=== PATIENT | male | born 1955 | race Caucasian/White ===

== ENCOUNTER 2018-06-05 11:14 | Inpatient (IN) ==
--- NOTE | 2018-06-05 12:49 | ED ---
HPI General Chief complaint: Respiratory Symptoms Stated complaint: Medical/Dr Sent Time Seen by Provider: 06/05/18 12:24 Source: patient, RN notes reviewed and old records reviewed Mode of arrival: wheelchair Limitations: no limitations History of Present Illness HPI narrative: 63-year-old male presents to the emergency department for admission. Patient had his first appointment at the resident clinic this morning. He is referred to the emergency department for admission for probable pneumonia, acute liver failure. The patient was recently in the hospital, left on May 26. According the chart, he did leave AMA as they were working on placement for him. The patient states that he has been chronically weak since he left, no different. He states that his jaundice is worse some days than others, it is worse today. Patient denies any headache. Denies any fevers. He reports chest pain shortness breath only with coughing which started 3 days ago. He denies any abdominal pain. No nausea, vomiting, diarrhea. Patient is jaundiced upon arrival. He denies drinking alcohol, using tobacco or using drugs. He was recently diagnosed with hepatitis A, CVA while in the hospital recently. He does have history of diabetes and hypertension. Moderate severity. Onset (ago): day(s) Severity: moderate Relieving factors: none Exacerbating factors: none Associated symptoms: Reports denies other symptoms, cough and weakness; Denies confusion, diaphoresis, fever/chills, headaches, loss of appetite, malaise, nausea/vomiting, rash, seizure, shortness of breath and syncope Related Data Home Medications Medication Instructions Recorded Confirmed insulin glargine [Lantus U-100 40 unit SUBCUT DAILY 06/05/18 06/05/18 Insulin] insulin lispro [Humalog U-100 12 unit SUBCUT AC BREAKFAST 06/05/18 06/05/18 Insulin] insulin lispro [Humalog U-100 12 unit SUBCUT AC LUNCH 06/05/18 06/05/18 Insulin] insulin lispro [Humalog U-100 16 unit SUBCUT AC DINNER 06/05/18 06/05/18 Insulin] pregabalin [Lyrica] 30 mg PO TID 06/05/18 06/05/18 Previous Rx's Medication Instructions Recorded insulin aspart U-100 1 sliding scale dose SQ UD #15 ml 05/19/18 aspirin 81 mg PO DAILY #30 tab 05/25/18 albuterol sulfate [ProAir HFA] 2 puff INHALATION Q4-6H PRN #1 06/06/18 inhaler hydrochlorothiazide 12.5 mg PO DAILY #60 tab 06/06/18 lisinopril 40 mg PO DAILY #60 tab 06/06/18 Allergies Allergy/AdvReac Type Severity Reaction Status Date / Time No Known Allergies Allergy Verified 06/05/18 11:27 Review of Systems ROS: all other systems reviewed are negative [facility] Medical History Medical History Diabetes (Acute) HTN (hypertension) (Acute) Surgical History Surgical History No history of previous surgery (Acute) Social History Social History Substance History: No History of Abuse Second Hand Smoke Exposure: No Smoking Status: Never smoker How Often Do You Have a Drink Containing Alcohol: Never Recent Travel in [facility] within the Last 8 Weeks: No Recent Out of Country Travel within the Last 8 Weeks: No Exam Narrative Exam Narrative: GENERAL: Well-nourished, well-developed male patient, afebrile SKIN: Focused skin assessment warm/dry. Patient is jaundiced HEAD: Normocephalic. Atraumatic EYES: No injection or drainage. NECK: Supple, trachea midline. No JVD or lymphadenopathy. CARDIOVASCULAR: Regular rate and rhythm without murmurs, gallops, or rubs. RESPIRATORY: Breath sounds equal bilaterally. No accessory muscle use. Dry cough noted. GASTROINTESTINAL: Abdomen soft, non-tender, nondistended. MUSCULOSKELETAL: No cyanosis. Bilateral 2+ lower extremity edema BACK: Nontender without obvious deformity. No CVA tenderness. Course Initial Documented Vital Signs Temperature 98.8 F 06/05/18 11:22 Pulse Rate 86 06/05/18 11:22 Respiratory Rate 16 06/05/18 11:22 Blood Pressure 216/100 H 06/05/18 11:22 Pulse Oximetry 97 06/05/18 11:22 Last Documented Vital Signs Temperature 98.5 F 06/06/18 12:00 Pulse Rate 81 06/06/18 12:00 Respiratory Rate 19 06/06/18 12:00 Blood Pressure 170/70 H 06/06/18 12:00 Pulse Oximetry 98 06/06/18 12:00 Medical Decision Making LEONARDO Attestation LEONARDO supervised visit: Yes Attestation: Patient was not seen by me or presented by advance practitioner, I was available for consult MDM Narrative Medical decision making narrative: 63-year-old male presents to the emergency department sent from the resident clinic for admission. EKG, CBC, CMP, lipase, lactic acid, PTT, PT/INR, blood cultures x2, UA are ordered and pending. Residents are paged. Residents accepted admission. Medical Screen Exam Complete: Yes Emergency Medical Condition: Yes Differential Diagnosis Differential Diagnosis: Acute liver failure versus hepatitis versus pneumonia versus sepsis Medical Records Medical records reviewed: Yes I reviewed the patient's medical records. Lab Data Result diagrams: 06/06/18 04:15 06/06/18 04:15 Lab Results 06/05/18 06/05/18 06/05/18 Range/Units 13:25 13:25 13:25 WBC 6.7 (4.0-11.0) th/mm3 RBC 3.30 L (4.50-5.90) mil/mm3 Hgb 9.9 L (13.0-17.0) gm/dL Hct 29.3 L (39.0-51.0) % MCV 88.8 (80.0-100.0) fL MCH 30.0 (27.0-34.0) pg MCHC 33.8 (32.0-36.0) % RDW 18.6 H (11.6-17.2) % Plt Count 373 D (150-450) th/mm3 MPV 8.0 (7.0-11.0) fL Prelim Diff (Auto) Manual diff required WBC Differential Manual diff final Seg Neuts % (Manual) 70 (16-70) % Band Neuts % (Manual) 6 (0-6) % Lymphocytes % (Manual) 11 (9-44) % Monocytes % (Manual) 8 (0-8) % Eosinophils % (Manual) 5 H (0-4) % Abs Neuts (Manual) 5.1 (1.8-7.7) th/mm3 Differential Comment . Platelet Estimate Normal (Normal) Platelet Morphology Normal (Normal) PT 13.5 H (9.8-11.6) sec INR 1.3 Ratio APTT 28.0 (23.4-31.7) sec Sodium 139 (136-145) meq/L Potassium 4.1 (3.5-5.1) meq/L Chloride 111 H (98-107) meq/L Carbon Dioxide 22.1 (21.0-32.0) meq/L Anion Gap 6 (5-15) meq/L BUN 19 H (7-18) mg/dL Creatinine 1.53 H (0.60-1.30) mg/dL Estimated GFR 46 L (>89) mL/min POC Glucose (68-110) mg/dl Random Glucose 90 (74-106) mg/dL Lactic Acid (0.4-2.0) mmol/L Calcium 7.3 L* (8.5-10.1) mg/dL Calcium Adj for Albumin 9.3 (8.5-10.1) mg/dL Magnesium 1.9 (1.5-2.5) mg/dL Total Bilirubin 10.9 H (0.2-1.0) mg/dL AST 74 H (15-37) U/L ALT 95 H (12-78) U/L Alkaline Phosphatase 280 H (45-117) U/L Total Protein 7.9 (6.4-8.2) g/dL Albumin 1.5 L (3.4-5.0) g/dL Lipase 310 (73-393) U/L 06/05/18 06/05/18 06/05/18 Range/Units 13:25 16:31 20:21 WBC (4.0-11.0) th/mm3 RBC (4.50-5.90) mil/mm3 Hgb (13.0-17.0) gm/dL Hct (39.0-51.0) % MCV (80.0-100.0) fL MCH (27.0-34.0) pg MCHC (32.0-36.0) % RDW (11.6-17.2) % Plt Count (150-450) th/mm3 MPV (7.0-11.0) fL Prelim Diff (Auto) WBC Differential Seg Neuts % (Manual) (16-70) % Band Neuts % (Manual) (0-6) % Lymphocytes % (Manual) (9-44) % Monocytes % (Manual) (0-8) % Eosinophils % (Manual) (0-4) % Abs Neuts (Manual) (1.8-7.7) th/mm3 Differential Comment Platelet Estimate (Normal) Platelet Morphology (Normal) PT (9.8-11.6) sec INR Ratio APTT (23.4-31.7) sec Sodium (136-145) meq/L Potassium (3.5-5.1) meq/L Chloride (98-107) meq/L Carbon Dioxide (21.0-32.0) meq/L Anion Gap (5-15) meq/L BUN (7-18) mg/dL Creatinine (0.60-1.30) mg/dL Estimated GFR (>89) mL/min POC Glucose 62 L 134 H (68-110) mg/dl Random Glucose (74-106) mg/dL Lactic Acid 1.5 (0.4-2.0) mmol/L Calcium (8.5-10.1) mg/dL Calcium Adj for Albumin (8.5-10.1) mg/dL Magnesium (1.5-2.5) mg/dL Total Bilirubin (0.2-1.0) mg/dL AST (15-37) U/L ALT (12-78) U/L Alkaline Phosphatase (45-117) U/L Total Protein (6.4-8.2) g/dL Albumin (3.4-5.0) g/dL Lipase (73-393) U/L 06/06/18 06/06/18 06/06/18 Range/Units 04:15 04:15 04:15 WBC 6.9 (4.0-11.0) th/mm3 RBC 2.94 L (4.50-5.90) mil/mm3 Hgb 8.7 L (13.0-17.0) gm/dL Hct 26.1 L (39.0-51.0) % MCV 88.9 (80.0-100.0) fL MCH 29.8 (27.0-34.0) pg MCHC 33.5 (32.0-36.0) % RDW 18.5 H (11.6-17.2) % Plt Count 310 (150-450) th/mm3 MPV 8.8 (7.0-11.0) fL Prelim Diff (Auto) Manual diff required WBC Differential Manual diff final Seg Neuts % (Manual) 73 H (16-70) % Band Neuts % (Manual) 5 (0-6) % Lymphocytes % (Manual) 7 L (9-44) % Monocytes % (Manual) 12 H (0-8) % Eosinophils % (Manual) 3 (0-4) % Abs Neuts (Manual) 5.4 (1.8-7.7) th/mm3 Differential Comment . Platelet Estimate Normal (Normal) Platelet Morphology Normal (Normal) PT 12.8 H (9.8-11.6) sec INR 1.3 Ratio APTT (23.4-31.7) sec Sodium 140 (136-145) meq/L Potassium 4.6 (3.5-5.1) meq/L Chloride 112 H (98-107) meq/L Carbon Dioxide 22.4 (21.0-32.0) meq/L Anion Gap 6 (5-15) meq/L BUN 19 H (7-18) mg/dL Creatinine 1.42 H (0.60-1.30) mg/dL Estimated GFR 50 L (>89) mL/min POC Glucose (68-110) mg/dl Random Glucose 82 (74-106) mg/dL Lactic Acid (0.4-2.0) mmol/L Calcium 7.3 L* (8.5-10.1) mg/dL Calcium Adj for Albumin 9.5 (8.5-10.1) mg/dL Magnesium (1.5-2.5) mg/dL Total Bilirubin 8.4 H (0.2-1.0) mg/dL AST 63 H (15-37) U/L ALT 76 (12-78) U/L Alkaline Phosphatase 234 H (45-117) U/L Total Protein 6.8 D (6.4-8.2) g/dL Albumin 1.2 L (3.4-5.0) g/dL Lipase (73-393) U/L 06/06/18 06/06/18 Range/Units 07:36 11:25 WBC (4.0-11.0) th/mm3 RBC (4.50-5.90) mil/mm3 Hgb (13.0-17.0) gm/dL Hct (39.0-51.0) % MCV (80.0-100.0) fL MCH (27.0-34.0) pg MCHC (32.0-36.0) % RDW (11.6-17.2) % Plt Count (150-450) th/mm3 MPV (7.0-11.0) fL Prelim Diff (Auto) WBC Differential Seg Neuts % (Manual) (16-70) % Band Neuts % (Manual) (0-6) % Lymphocytes % (Manual) (9-44) % Monocytes % (Manual) (0-8) % Eosinophils % (Manual) (0-4) % Abs Neuts (Manual) (1.8-7.7) th/mm3 Differential Comment Platelet Estimate (Normal) Platelet Morphology (Normal) PT (9.8-11.6) sec INR Ratio APTT (23.4-31.7) sec Sodium (136-145) meq/L Potassium (3.5-5.1) meq/L Chloride (98-107) meq/L Carbon Dioxide (21.0-32.0) meq/L Anion Gap (5-15) meq/L BUN (7-18) mg/dL Creatinine (0.60-1.30) mg/dL Estimated GFR (>89) mL/min POC Glucose 92 140 H (68-110) mg/dl Random Glucose (74-106) mg/dL Lactic Acid (0.4-2.0) mmol/L Calcium (8.5-10.1) mg/dL Calcium Adj for Albumin (8.5-10.1) mg/dL Magnesium (1.5-2.5) mg/dL Total Bilirubin (0.2-1.0) mg/dL AST (15-37) U/L ALT (12-78) U/L Alkaline Phosphatase (45-117) U/L Total Protein (6.4-8.2) g/dL Albumin (3.4-5.0) g/dL Lipase (73-393) U/L Imaging Data Radiologist's impression: Chest X-Ray 06/05/18 12:39 CONCLUSION: The lungs are clear. Discharge Plan Discharge Disposition Patient Disposition: ED Admit(ED Internal Use Only) Discharge Condition Condition: Stable Discharge Order Discharge Orders: Discharge Order (Routine); Ordered 06/06/18 Ordered By: Quinton Stephens ED Use Only Admit Order (Routine); Ordered 06/05/18 Ordered By: Delmy Gold Discharge Details Anticipated Discharge Date: 06/06/18 Diagnosis: Acute liver failure Physicians Team ED Provider: Jason Dawson ED Midlevel Provider: Delmy Gold Primary Care Provider: Josee Alejo Attending Provider: Peggy Verdin Other Providers: [facility], Status ED Status: Left Department Discharge Information Discharge Date/Time: 06/05/18 15:30
--- NOTE | 2018-06-05 13:15 | XR ---
EXAM DATE: 06/05/2018 1:11 PM EST AGE/SEX: 63 years / Male INDICATIONS: Fever. CLINICAL DATA: This is the patient's initial encounter. Patient reports that signs and symptoms have been present for 1 day and indicates a pain score of 6/10. MEDICAL/SURGICAL HISTORY: . Diabetes. Hypertension. None. COMPARISON: [facility], CHEST 1V SINGLE AP, 05/19/2018. . FINDINGS: A single AP view of the chest demonstrates the lungs to be symmetrically aerated without evidence of mass, infiltrate or effusion. The cardiomediastinal contours are unremarkable. Osseous structures a re intact. CONCLUSION: The lungs are clear. Electronically signed by: Brice Ventura MD Board Certified Radiologist 06/05/2018 1:14 PM EST
[2018-06-05] MEDS ORDERED: Acetaminophen 325 MG Tablet PO PRN (13:36)
[2018-06-05 14:01] LABS: Hematocrit 29.3 % (39.0-51.0); Hemoglobin 9.9 gm/dL (13.0-17.0); Mean Corpuscular HGB Conc 33.8 % (32.0-36.0); Mean Corpuscular Volume 88.8 fL (80.0-100.0); Platelet Count 373 th/mm3 (150-450); Red Cell Distribution Width 18.6 % (11.6-17.2); White Blood Count 6.7 th/mm3 (4.0-11.0)
[2018-06-05 14:10] LABS: INR 1.3 Ratio; Prothrombin Time 13.5 sec (9.8-11.6)
[2018-06-05] MEDS ORDERED: Dextrose 50% in Water 50 ML Vial IV.PUSH PRN (14:23)
[2018-06-05 14:25] LABS: Albumin 1.5 g/dL (3.4-5.0); Calcium 7.3 mg/dL (8.5-10.1); Carbon Dioxide 22.1 meq/L (21.0-32.0); Magnesium 1.9 mg/dL (1.5-2.5); Potassium 4.1 meq/L (3.5-5.1)
[2018-06-05 14:26] LABS: Total Protein 7.9 g/dL (6.4-8.2)
[2018-06-05 14:29] LABS: Eosinophils 5 % (0-4); Lymphocytes 11 % (9-44); Monocytes 8 % (0-8); Platelet Estimate Normal (Normal); Platelet Morphology Normal (Normal)
[2018-06-05] MEDS ORDERED: hydrALAZINE HCl Inj 20 MG/ML Vial IV.PUSH PRN (14:33)
[2018-06-05] MEDS ORDERED: Labetalol HCl Inj 100 MG/20 ML Vial IV.PUSH PRN (14:33)
[2018-06-05] MEDS: Lisinopril 20 MG Tablet PO SCH (14:42)
--- NOTE | 2018-06-05 14:55 | P.HPFP ---
History of Present Illness Primary Care Physician: Josee Gibbons MD, R2 <LambertSaulPeggy - 06/07/18 18:05> UNKNOWN <Stanislavjackie KatQuinton - 06/05/18 14:55> History of Present Illness: The patient is a very pleasant 63-year-old male with history of insulin-dependent diabetes mellitus, recent hospitalization here last month initially with DKA, h/o CVA, HTN, recent hepatitis A, and noted arrhythmia last month who was sent to the ED by his primary care physician after being seen in clinic today for respiratory symptoms and acute liver injury. The patient seen in the ED with his daughter who provides much of the history. They report subjective fevers and cough for about the past 3 days. Cough is sometimes productive of green phlegm. Patient has had mild shortness of breath primarily when coughing as well. Denies chest pain, confusion, BARRIOS, changes in vision, abdominal pain, N/V, diarrhea, urinary symptoms. His daughter states his diet has been good at home. He ambulates at home unassisted with the use of a cane. They are unsure how the patient got hepatitis A. A hepatitis panel was checked at his last hospitalization last month here which was negative for hepatitis B and C. They otherwise deny known PMH. Do report he was seeing a PCP in [place] up until January 2018 when they moved to the [facility]. PMH - Insulin-dependent diabetes mellitus, last A1c 15.2 on 05/21/2018 - History of DKA - CVA - Hypertension - Hepatitis A - Arrhythmia PSxH - Hernia repair - Penile implant FH - Father: daughter reports massive NE SH - Lives with his son and daughter - Never smoker - Etoh: Denies. Occasional intake in the past, no h/o etoh abuse - Illicit drugs: denies <Junito Kat,[place] - 06/05/18 15:15> - Diagnosis (1) Hypertension (2) Transaminitis (3) Hepatitis A (4) Cough (5) Diabetes mellitus (6) History of CVA (cerebrovascular accident) (7) Atrial arrhythmia (8) THAIS (acute kidney injury) (9) Nutrition, metabolism, and development symptoms <LambertPeggy - 06/07/18 18:05> (1) Hypertension (2) Transaminitis (3) Hepatitis A (4) Cough (5) Diabetes mellitus (6) History of CVA (cerebrovascular accident) (7) Atrial arrhythmia (8) THAIS (acute kidney injury) (9) Nutrition, metabolism, and development symptoms <[address] 06/05/18 15:15> Inpatient Certification: I certify that the inpatient services were ordered in accordance with Medicare regulations governing the order. This includes certification that hospital inpatient services are reasonable and necessary and in the case of services not specified as inpatient-only under 42 CFR 419.22(n), that they are appropriately provided as inpatient services in accordance to with the 2-midnight benchmark under 43 CFR 412.3(e) <Peggy Verdin [facility] 06/07/18 18:05> Review of Systems Constitutional: Reports fever(s), Reports malaise <[address] 15:15> Cardiovascular: Denies chest pain, Denies chest pain at rest, Denies rapid, pounding, or irregular heartbeat, Denies shortness of breath with activity < [address] 06/05/18 15:15> Respiratory: Reports change in phlegm color, Reports cough, Denies coughing up blood <[address] 06/05/18 15:15> Gastrointestinal: Reports incontinent of stools, Denies abdominal pain, Denies black, tarry stools, Denies change in bowel habits, Denies constipation, Denies nausea, Denies vomiting <[address] 06/05/18 15:15> Genitourinary: Denies difficulty urinating, Denies painful urination < [address] 06/05/18 15:15> Neurologic: Denies confusion, Denies dizziness, Denies headache(s) < [address] 06/05/18 15:15> [facility] - History History Provided By: Patient <[address] 06/05/18 14:55> - Medical History Medical History: Medical History (Last Updated 06/05/18 @ 12:49 by Dilcia Mann) Diabetic macular edema Hepatitis A Diabetes HTN (hypertension) <Peggy Verdin [facility] 06/07/18 18:05> Medical History (Last Updated 06/05/18 @ 12:49 by Dilcia Mann) Diabetic macular edema Hepatitis A Diabetes HTN (hypertension) <[address] 06/05/18 14:55> - Surgical History Surgical History: Surgical History (Last Updated 06/05/18 @ 12:49 by Dilcia Mann) History of hernia repair History of penile implant No history of previous surgery <Peggy Verdin - 06/07/18 18:05> Surgical History (Last Updated 06/05/18 @ 12:49 by Dilcia Mann) History of hernia repair History of penile implant No history of previous surgery <[facility] 06/05/18 14:55> - Family History Family History: Family History (Last Updated 05/13/18 @ 16:57 by Ny Jean) Other Cardiovascular disease <Peggy Verdin - 06/07/18 18:05> Family History (Last Updated 05/13/18 @ 16:57 by Ny Jean) Other Cardiovascular disease <[address]manuel[address] 06/05/18 14:55> - Tobacco History Second Hand Smoke Exposure: No <[address] 06/05/18 14:55> Smoking Status: Never smoker <[address] 06/05/18 14:55> - Alcohol History How Often Do You Have a Drink Containing Alcohol: Never <[address] 06/05/18 14:55> - Substance Use History Substance History: No History of Abuse <[address] 06/05/18 14:55> - Travel History Recent Travel in the [facility] Within the Last 8 Weeks: No <[address] 06/05/18 14:55> Recent Travel Out of the Country Within the Last 8 Weeks: No <[address] 06/05/18 14:55> - Immunization History Tetanus Immunization: Unsure <[address] 06/05/18 14:55> Medications and Allergies Allergies Allergy/AdvReac Type Severity Reaction Status Date / Time No Known Allergies Allergy Verified 06/05/18 11:27 <Peggy Verdin - 06/07/18 18:05> Home Medications Medication Instructions Recorded Confirmed Type insulin glargine [Lantus U-100 40 unit SUBCUT DAILY 06/05/18 06/05/18 History Insulin] insulin lispro [Humalog U-100 12 unit SUBCUT AC BREAKFAST 06/05/18 06/05/18 History Insulin] insulin lispro [Humalog U-100 12 unit SUBCUT AC LUNCH 06/05/18 06/05/18 History Insulin] insulin lispro [Humalog U-100 16 unit SUBCUT AC DINNER 06/05/18 06/05/18 History Insulin] pregabalin [Lyrica] 30 mg PO TID 06/05/18 06/05/18 History <Peggy Verdin M - 06/07/18 18:05> Active Medications: Active Medications Acetaminophen (Tylenol) 650 mg PO Q6H PRN PRN Reason: Temp > 100.4 Albuterol (Albuterol Neb (Prn)) 2.5 mg NEB Q2HR NEB PRN PRN Reason: SHORTNESS OF BREATH/WHEEZING Albuterol (Duoneb Neb (Prn)) 1 ampul NEB Q4HR NEB PRN PRN Reason: SHORTNESS OF BREATH/WHEEZING Dextrose (D50w Vial) 50 ml IV.PUSH UNSCH PRN PRN Reason: PER HYPOGLYCEMIA PROTOCOL Glucagon (Glucagon Inj) 1 mg OTHER PRN PRN PRN Reason: for Hypoglycemia Protocol Hydralazine HCl (Apresoline Inj) 10 mg IV.PUSH Q6H PRN PRN Reason: SEE LABEL COMMENTS Insulin Aspart (Novolog Insulin Correctional Sugar Inj) 0 unit SQ ACHS [facility]; Protocol Insulin Detemir (Levemir Inj) 5 unit SQ BID ANSHU Labetalol HCl (Trandate Inj) 10 mg IV.PUSH Q4H PRN PRN Reason: SEE LABEL COMMENTS Lisinopril (Prinivil) 20 mg PO DAILY [facility] Last Admin: 06/05/18 14:42 Dose: 20 mg Ondansetron HCl (Zofran Inj) 4 mg IV.PUSH Q6H PRN PRN Reason: NAUSEA OR VOMITING Pravastatin Sodium (Pravachol) 20 mg PO HS ANSHU Pregabalin (Lyrica) 25 mg PO TID ANSHU Sodium Chloride (Ns Flush) 2 ml IV.FLUSH BID ANSHU Sodium Chloride (Ns Flush) 2 ml IV.FLUSH PRN PRN PRN Reason: FLUSH AFTER USING IV ACCESS <[place] [id number],[place] - 06/05/18 14:55> Exam Vital signs: Intake & Output 06/06/18 06/07/18 06/07/18 18:59 06:59 18:59 Other: Date of Last Bowel Movement 06/05/18 <Peggy Verdin M - 06/07/18 18:05> Vital Signs 06/05/18 11:22 06/05/18 12:48 06/05/18 13:00 Temperature 98.8 F 99.9 F H Pulse Rate 86 91 H 87 Respiratory Rate 16 20 20 Blood Pressure 216/100 H 192/100 H 219/99 H Pulse Oximetry 97 96 98 06/05/18 13:36 06/05/18 13:43 06/05/18 14:34 Temperature Pulse Rate 87 82 Respiratory Rate 20 20 Blood Pressure 216/99 H 193/89 H Pulse Oximetry 98 96 98 Intake & Output 06/04/18 06/05/18 06/05/18 18:59 06:59 18:59 Weight 81.647 kg <[place] [id number],[place] - 06/05/18 14:55> Narrative: GENERAL: NAD, lying comfortably in bed NEURO: Alert and oriented x 3. Normal speech. territory sales consultant grossly intact. Motor grossly normal. SKIN: Warm and dry. Obvious jaundice. HEAD: Normocephalic. Atraumatic. EYES: PERRL. EOMI. + scleral icterus. No injection or drainage. ENT: No nasal drainage. Moist mucous membranes. No oral ulcers or lesions. NECK: Supple, trachea midline. No JVD or lymphadenopathy. CARDIOVASCULAR: Regular rate and rhythm without murmurs, rubs, or gallops. Peripheral pulses 2+. Capillary refill < 2 seconds. RESPIRATORY: Breath sounds equal bilaterally without rales or rhonchi. Mid to late expiratory wheezing throughout. No accessory muscle use. GASTROINTESTINAL: Abdomen soft, nontender, protuberant but nondistended, normal BS. No rebound tenderness. No guarding. MUSCULOSKELETAL: 2+ lower extremity pitting pre-tibial edema. <Stanislavdavanam ,[place] - 06/05/18 15:15> Results - Labs Result diagrams: 06/06/18 04:15 06/06/18 04:15 <Peggy Verdin - 06/07/18 18:05> Abnormal lab results 06/05/18 06/05/18 06/05/18 Range/Units 13:25 13:25 13:25 RBC 3.30 L (4.50-5.90) mil/mm3 Hgb 9.9 L (13.0-17.0) gm/dL Hct 29.3 L (39.0-51.0) % RDW 18.6 H (11.6-17.2) % Eosinophils % (Manual) 5 H (0-4) % PT 13.5 H (9.8-11.6) sec Chloride 111 H (98-107) meq/L BUN 19 H (7-18) mg/dL Creatinine 1.53 H (0.60-1.30) mg/dL Estimated GFR 46 L (>89) mL/min Calcium 7.3 L* (8.5-10.1) mg/dL Total Bilirubin 10.9 H (0.2-1.0) mg/dL AST 74 H (15-37) U/L ALT 95 H (12-78) U/L Alkaline Phosphatase 280 H (45-117) U/L Albumin 1.5 L (3.4-5.0) g/dL Short CBC 06/05/18 Range/Units 13:25 WBC 6.7 (4.0-11.0) th/mm3 Hgb 9.9 L (13.0-17.0) gm/dL Hct 29.3 L (39.0-51.0) % Plt Count 373 D (150-450) th/mm3 [facility] 06/05/18 13:25 Sodium 139 Potassium 4.1 Chloride 111 H Carbon Dioxide 22.1 BUN 19 H Creatinine 1.53 H Calcium 7.3 L* Liver Function 06/05/18 Range/Units 13:25 Total Bilirubin 10.9 H (0.2-1.0) mg/dL AST 74 H (15-37) U/L ALT 95 H (12-78) U/L Alkaline Phosphatase 280 H (45-117) U/L Albumin 1.5 L (3.4-5.0) g/dL <[place] Ballard - 06/05/18 14:55> - Imaging Impressions Chest X-Ray 06/05/18 12:39 CONCLUSION: The lungs are clear. <[facility] ,[place] - 06/05/18 14:55> Caprini VTE Risk Assessment Caprini VTE Risk Assessment: Moderate/High Risk (score >= 2) <[facility], [place] - 06/05/18 15:15> Caprini Risk Assessment Model: Point Value = 1 Point Value = 2 Point Value = 3 Point Value = 5 Age 41-60 Minor surgery BMI > 25 kg/m2 Swollen legs Varicose veins or History of unexplained or recurrent spontaneous Oral contraceptives or hormone replacement Sepsis (< 1 month) Serious lung disease, including pneumonia (< 1 month) Abnormal pulmonary function Acute myocardial infarction Congestive heart failure (< 1 month) History of inflammatory bowel disease Medical patient at bed rest Age 61-74 Arthroscopic surgery Major open surgery (> 45 min) Laparoscopic surgery (> 45 min) Malignancy Confined to bed (> 72 hours) Immobilizing plaster cast Central venous access Age >= 75 History of VTE Family history of VTE Factor V Leiden Prothrombin [id number] Lupus anticoagulant Anticardiolipin antibodies Elevated serum homocysteine Heparin-induced thrombocytopenia Other congenital or acquired thrombophilia Stroke (< 1 month) Elective arthroplasty Hip, pelvis, or leg fracture Acute spinal cord injury (< 1 month) <Peggy Verdin - 06/07/18 18:05> Point Value = 1 Point Value = 2 Point Value = 3 Point Value = 5 Age 41-60 Minor surgery BMI > 25 kg/m2 Swollen legs Varicose veins or History of unexplained or recurrent spontaneous Oral contraceptives or hormone replacement Sepsis (< 1 month) Serious lung disease, including pneumonia (< 1 month) Abnormal pulmonary function Acute myocardial infarction Congestive heart failure (< 1 month) History of inflammatory bowel disease Medical patient at bed rest Age 61-74 Arthroscopic surgery Major open surgery (> 45 min) Laparoscopic surgery (> 45 min) Malignancy Confined to bed (> 72 hours) Immobilizing plaster cast Central venous access Age >= 75 History of VTE Family history of VTE Factor V Leiden Prothrombin [id number] Lupus anticoagulant Anticardiolipin antibodies Elevated serum homocysteine Heparin-induced thrombocytopenia Other congenital or acquired thrombophilia Stroke (< 1 month) Elective arthroplasty Hip, pelvis, or leg fracture Acute spinal cord injury (< 1 month) <Junito ,[place] - 06/05/18 14:55> Prophylaxis Regimen: Total Risk Factor Score Risk Level Prophylaxis Regimen 0-1 Low Early ambulation 2 Moderate Order ONE of the following: *Sequential Compression Device (SCD) *Heparin 5000 units SQ BID 3-4 Higher Order ONE of the following medications: *Heparin 5000 units SQ TID *Enoxaparin/Lovenox 40 mg SQ daily (WT < 150 kg, CrCl > 30 mL/min) *Enoxaparin/Lovenox 30 mg SQ daily (WT < 150 kg, CrCl > 10-29 mL/min) *Enoxaparin/Lovenox 30 mg SQ BID (WT < 150 kg, CrCl > 30 mL/min) AND/OR *Sequential Compression Device (SCD) 5 or more Highest Order ONE of the following medications: *Heparin 5000 units SQ TID (Preferred with Epidurals) *Enoxaparin/Lovenox 40 mg SQ daily (WT < 150 kg, CrCl > 30 mL/min) *Enoxaparin/Lovenox 30 mg SQ daily (WT < 150 kg, CrCl > 10-29 mL/min) *Enoxaparin/Lovenox 30 mg SQ BID (WT < 150 kg, CrCl > 30 mL/min) AND *Sequential Compression Device (SCD) <Peggy Verdin - 06/07/18 18:05> Total Risk Factor Score Risk Level Prophylaxis Regimen 0-1 Low Early ambulation 2 Moderate Order ONE of the following: *Sequential Compression Device (SCD) *Heparin 5000 units SQ BID 3-4 Higher Order ONE of the following medications: *Heparin 5000 units SQ TID *Enoxaparin/Lovenox 40 mg SQ daily (WT < 150 kg, CrCl > 30 mL/min) *Enoxaparin/Lovenox 30 mg SQ daily (WT < 150 kg, CrCl > 10-29 mL/min) *Enoxaparin/Lovenox 30 mg SQ BID (WT < 150 kg, CrCl > 30 mL/min) AND/OR *Sequential Compression Device (SCD) 5 or more Highest Order ONE of the following medications: *Heparin 5000 units SQ TID (Preferred with Epidurals) *Enoxaparin/Lovenox 40 mg SQ daily (WT < 150 kg, CrCl > 30 mL/min) *Enoxaparin/Lovenox 30 mg SQ daily (WT < 150 kg, CrCl > 10-29 mL/min) *Enoxaparin/Lovenox 30 mg SQ BID (WT < 150 kg, CrCl > 30 mL/min) AND *Sequential Compression Device (SCD) <[place] Ballard - 06/05/18 15:15> Assessment and Plan - Assessment (1) Hypertension Code(s): I10 - Essential (primary) hypertension Status: Chronic (2) Transaminitis Code(s): R74.0 - Nonspecific elevation of levels of transaminase and lactic acid dehydrogenase [LDH] Status: Acute (3) Hepatitis A Code(s): B15.9 - Hepatitis A without hepatic coma Status: Acute (4) Cough Code(s): R05 - Cough Status: Acute (5) Diabetes mellitus Code(s): E11.9 - Type 2 diabetes mellitus without complications Status: Chronic (6) History of CVA (cerebrovascular accident) Code(s): Z86.73 - Personal history of transient ischemic attack (TIA), and cerebral infarction without residual deficits Status: Chronic (7) Atrial arrhythmia Code(s): I49.8 - Other specified cardiac arrhythmias Status: Acute (8) THAIS (acute kidney injury) Code(s): N17.9 - Acute kidney failure, unspecified Status: Acute (9) Nutrition, metabolism, and development symptoms Code(s): R63.8 - Other symptoms and signs concerning food and fluid intake Status: Acute <Peggy Verdin - 06/07/18 18:05> (1) Hypertension Code(s): I10 - Essential (primary) hypertension Status: Chronic Plan: Patient per chart review previously with diet-controlled hypertension, questionable compliance with following up with his previous PCP Had been increased on antihypertensives per his primary care physician Continue lisinopril 20 mg once daily Labetalol 10 mg IV q4h prn BP > 180/100 Hydralazine prn Monitor vitals q4h (2) Transaminitis Code(s): R74.0 - Nonspecific elevation of levels of transaminase and lactic acid dehydrogenase [LDH] Status: Acute Plan: Patient has mild transaminitis with known recent hepatitis A infection Continue supportive care Avoid hepatotoxic agents (3) Hepatitis A Code(s): B15.9 - Hepatitis A without hepatic coma Status: Acute Plan: Plan as above Continue to monitor LFTs, INR (4) Cough Code(s): R05 - Cough Status: Acute Plan: The patient is afebrile, no leukocytosis CXR is noted to be within normal limits Swab for influenza Consider otherwise due to viral URI vs bronchitis Guaifenesin prn (5) Diabetes mellitus Code(s): E11.9 - Type 2 diabetes mellitus without complications Status: Chronic Plan: The patient has poorly controlled insulin-dependent diabetes mellitus with last A1c of 15.2 on 05/21/2018 Will half home dose on insulin at this time, titrate up as necessary, initial random glucose is 90 Accuchecks ACHS Low-dose aspart ISS Hypoglycemia protocol (6) History of CVA (cerebrovascular accident) Code(s): Z86.73 - Personal history of transient ischemic attack (TIA), and cerebral infarction without residual deficits Status: Chronic Plan: Appreciate PT and OT Continue daily aspirin Hold pravastatin at this time Early mobilization with assistance as tolerated (7) Atrial arrhythmia Code(s): I49.8 - Other specified cardiac arrhythmias Status: Acute Plan: On prior admission to telemetry it indicated an atrial arrhythmia with atrial fibrillation cannot be ruled out, previously were awaiting Holter monitor however patient had left AMA He is noted to be in regular rate and rhythm on admission Continue cardiac telemetry monitoring (8) THAIS (acute kidney injury) Code(s): N17.9 - Acute kidney failure, unspecified Status: Acute Plan: Cr 1.53 on admission, baseline ~1.3 Consider pre-renal etiology from decrease renal perfusion pressure Encourage PO intake, no IVF at this time given hypervolemic on exam (9) Nutrition, metabolism, and development symptoms Code(s): R63.8 - Other symptoms and signs concerning food and fluid intake Status: Acute Plan: Fluids: per PO Electrolytes: Continue to monitor Nutrition: Diabetic diet GI ppx: not indicated DVT ppx: Lovenox <[facility] - 06/05/18 15:15> - Assessment and Plan Discharge Planning: Anticipate discharge home tomorrow pending stable clinical course <[facility] - 06/05/18 15:15> - Attending Attestation The exam, history, and the medical decision-making described in the above note were completed with the assistance of the resident physician. I reviewed and agree with the findings presented. I attest that I had a [id number] encounter with the patient on the same day, and personally performed and documented my assessment and findings in the medical record. I was present in the ED when he was being admitted. <Peggy Verdin - 06/07/18 18:05>
[2018-06-05] MEDS ORDERED: guaiFENesin 600 MG ER Tablet PO PRN (15:17)
[2018-06-05] MEDS: Insulin NovoLOG Aspart Correctional Sugar Inj SQ SCH ×2 (16:33→20:56)
[2018-06-05] MEDS: Pregabalin 25 MG Capsule PO SCH (17:53)
[2018-06-05] MEDS: Insulin Detemir Inj 1,000 UNIT/10 ML Vial SQ SCH (20:56)
[2018-06-06 05:59] LABS: Hematocrit 26.1 % (39.0-51.0); Hemoglobin 8.7 gm/dL (13.0-17.0); Mean Corpuscular HGB Conc 33.5 % (32.0-36.0); Mean Corpuscular Hemoglobin 29.8 pg (27.0-34.0); Mean Corpuscular Volume 88.9 fL (80.0-100.0); Mean Platelet Volume 8.8 fL (7.0-11.0); Platelet Count 310 th/mm3 (150-450); Red Blood Count 2.94 mil/mm3 (4.50-5.90); Red Cell Distribution Width 18.5 % (11.6-17.2); White Blood Count 6.9 th/mm3 (4.0-11.0)
[2018-06-06 06:08] LABS: INR 1.3 Ratio; Prothrombin Time 12.8 sec (9.8-11.6)
[2018-06-06 06:31] LABS: Albumin 1.2 g/dL (3.4-5.0); Calcium 7.3 mg/dL (8.5-10.1); Carbon Dioxide 22.4 meq/L (21.0-32.0); Potassium 4.6 meq/L (3.5-5.1); Total Protein 6.8 g/dL (6.4-8.2)
[2018-06-06 07:43] LABS: Eosinophils 3 % (0-4); Lymphocytes 7 % (9-44); Monocytes 12 % (0-8)
[2018-06-06 07:44] LABS: Platelet Estimate Normal (Normal); Platelet Morphology Normal (Normal)
[2018-06-06] MEDS: Lisinopril 20 MG Tablet PO SCH (08:05)
[2018-06-06] MEDS: Pregabalin 25 MG Capsule PO SCH ×2 (08:05→13:04)
--- NOTE | 2018-06-06 08:17 | P.PNFP ---
Subjective Interval history: No acute events overnight. Afebrile. Patient seen and examined this AM. Denies specific complaints or concerns. Specifically denies fevers, CP, dyspnea, cough, abdominal pain, confusion, tremors. <Quinton Ballard - 06/06/18 13:26> Results - Labs Result diagrams: 06/06/18 04:15 06/06/18 04:15 <LambertPeggy Bridgette - 06/07/18 18:07> Abnormal lab results 06/05/18 06/05/18 06/05/18 Range/Units 13:25 13:25 13:25 RBC 3.30 L (4.50-5.90) mil/mm3 Hgb 9.9 L (13.0-17.0) gm/dL Hct 29.3 L (39.0-51.0) % RDW 18.6 H (11.6-17.2) % Seg Neuts % (Manual) (16-70) % Lymphocytes % (Manual) (9-44) % Monocytes % (Manual) (0-8) % Eosinophils % (Manual) 5 H (0-4) % PT 13.5 H (9.8-11.6) sec Chloride 111 H (98-107) meq/L BUN 19 H (7-18) mg/dL Creatinine 1.53 H (0.60-1.30) mg/dL Estimated GFR 46 L (>89) mL/min POC Glucose (68-110) mg/dl Calcium 7.3 L* (8.5-10.1) mg/dL Total Bilirubin 10.9 H (0.2-1.0) mg/dL AST 74 H (15-37) U/L ALT 95 H (12-78) U/L Alkaline Phosphatase 280 H (45-117) U/L Albumin 1.5 L (3.4-5.0) g/dL 06/05/18 06/05/18 06/06/18 Range/Units 16:31 20:21 04:15 RBC 2.94 L (4.50-5.90) mil/mm3 Hgb 8.7 L (13.0-17.0) gm/dL Hct 26.1 L (39.0-51.0) % RDW 18.5 H (11.6-17.2) % Seg Neuts % (Manual) 73 H (16-70) % Lymphocytes % (Manual) 7 L (9-44) % Monocytes % (Manual) 12 H (0-8) % Eosinophils % (Manual) (0-4) % PT (9.8-11.6) sec Chloride (98-107) meq/L BUN (7-18) mg/dL Creatinine (0.60-1.30) mg/dL Estimated GFR (>89) mL/min POC Glucose 62 L 134 H (68-110) mg/dl Calcium (8.5-10.1) mg/dL Total Bilirubin (0.2-1.0) mg/dL AST (15-37) U/L ALT (12-78) U/L Alkaline Phosphatase (45-117) U/L Albumin (3.4-5.0) g/dL 06/06/18 06/06/18 Range/Units 04:15 04:15 RBC (4.50-5.90) mil/mm3 Hgb (13.0-17.0) gm/dL Hct (39.0-51.0) % RDW (11.6-17.2) % Seg Neuts % (Manual) (16-70) % Lymphocytes % (Manual) (9-44) % Monocytes % (Manual) (0-8) % Eosinophils % (Manual) (0-4) % PT 12.8 H (9.8-11.6) sec Chloride 112 H (98-107) meq/L BUN 19 H (7-18) mg/dL Creatinine 1.42 H (0.60-1.30) mg/dL Estimated GFR 50 L (>89) mL/min POC Glucose (68-110) mg/dl Calcium 7.3 L* (8.5-10.1) mg/dL Total Bilirubin 8.4 H (0.2-1.0) mg/dL AST 63 H (15-37) U/L ALT (12-78) U/L Alkaline Phosphatase 234 H (45-117) U/L Albumin 1.2 L (3.4-5.0) g/dL Short CBC 06/05/18 06/06/18 Range/Units 13:25 04:15 WBC 6.7 6.9 (4.0-11.0) th/mm3 Hgb 9.9 L 8.7 L (13.0-17.0) gm/dL Hct 29.3 L 26.1 L (39.0-51.0) % Plt Count 373 D 310 (150-450) th/mm3 BMP 06/05/18 06/06/18 13:25 04:15 Sodium 139 140 Potassium 4.1 4.6 Chloride 111 H 112 H Carbon Dioxide 22.1 22.4 BUN 19 H 19 H Creatinine 1.53 H 1.42 H Calcium 7.3 L* 7.3 L* Liver Function 06/05/18 06/06/18 Range/Units 13:25 04:15 Total Bilirubin 10.9 H 8.4 H (0.2-1.0) mg/dL AST 74 H 63 H (15-37) U/L ALT 95 H 76 (12-78) U/L Alkaline Phosphatase 280 H 234 H (45-117) U/L Albumin 1.5 L 1.2 L (3.4-5.0) g/dL <Junito [address] - 06/06/18 08:17> - Imaging Impressions Chest X-Ray 06/05/18 12:39 CONCLUSION: The lungs are clear. <Junito ,Quinton - 06/06/18 08:17> Physical Exam Vital signs: Intake & Output 06/06/18 06/07/18 06/07/18 18:59 06:59 18:59 Other: Date of Last Bowel Movement 06/05/18 <Peggy Verdin - 06/07/18 18:07> Vital Signs 06/05/18 11:22 06/05/18 12:48 06/05/18 13:00 Temperature 98.8 F 99.9 F H Pulse Rate 86 91 H 87 Respiratory Rate 16 20 20 Blood Pressure 216/100 H 192/100 H 219/99 H Pulse Oximetry 97 96 98 06/05/18 13:36 06/05/18 13:43 06/05/18 14:34 Temperature Pulse Rate 87 82 Respiratory Rate 20 20 Blood Pressure 216/99 H 193/89 H Pulse Oximetry 98 96 98 06/05/18 15:21 06/05/18 16:00 06/05/18 20:00 Temperature 99.1 F 97.9 F Pulse Rate 80 86 72 Respiratory Rate 18 18 Blood Pressure 165/79 H 181/84 H 168/82 H Pulse Oximetry 98 96 94 L 06/05/18 20:40 06/06/18 00:00 06/06/18 00:04 Temperature 98 F Pulse Rate 74 78 72 Respiratory Rate 22 Blood Pressure 188/94 H Pulse Oximetry 94 L 06/06/18 00:05 06/06/18 04:00 06/06/18 08:00 Temperature 98.2 F 98.6 F Pulse Rate 74 79 Respiratory Rate 20 18 Blood Pressure 170/86 H 162/84 H 204/95 H Pulse Oximetry 97 98 Intake & Output 06/05/18 06/06/18 06/06/18 18:59 06:59 18:59 Intake Total 480 / 480 Balance 480 / 480 Weight 102.1 kg 102.9 kg Intake: Oral 480 / 480 Other: # Voids 1 Date of Last Bowel Movement 06/05/18 06/05/18 # Bowel Movements 1 Weight On Admission 102.1 kg <[address]cora[address] - 06/06/18 08:17> Narrative: GENERAL: NAD, lying comfortably in bed NEURO: Alert and oriented x 3. Normal speech. analytical clerk grossly intact. Motor grossly normal. SKIN: Warm and dry. Obvious jaundice. HEAD: Normocephalic. Atraumatic. EYES: EOMI. + scleral icterus. No injection or drainage. ENT: No nasal drainage. Moist mucous membranes. No oral ulcers or lesions. NECK: Supple, trachea midline. No JVD or lymphadenopathy. CARDIOVASCULAR: Regular rate and rhythm without murmurs, rubs, or gallops. Peripheral pulses 2+. RESPIRATORY: Breath sounds equal bilaterally without rales or rhonchi. Mid to late expiratory wheezing throughout. No accessory muscle use. GASTROINTESTINAL: Abdomen soft, nontender, protuberant but nondistended, normal BS. No rebound tenderness. No guarding. MUSCULOSKELETAL: 2+ lower extremity pitting pre-tibial edema. <[facility] [address] - 06/06/18 13:26> Assessment and Plan - Assessment (1) Hypertension Code(s): I10 - Essential (primary) hypertension Status: Chronic (2) Transaminitis Code(s): R74.0 - Nonspecific elevation of levels of transaminase and lactic acid dehydrogenase [LDH] Status: Acute (3) Hepatitis A Code(s): B15.9 - Hepatitis A without hepatic coma Status: Acute (4) Cough Code(s): R05 - Cough Status: Acute (5) Diabetes mellitus Code(s): E11.9 - Type 2 diabetes mellitus without complications Status: Chronic (6) History of CVA (cerebrovascular accident) Code(s): Z86.73 - Personal history of transient ischemic attack (TIA), and cerebral infarction without residual deficits Status: Chronic (7) Atrial arrhythmia Code(s): I49.8 - Other specified cardiac arrhythmias Status: Acute (8) THAIS (acute kidney injury) Code(s): N17.9 - Acute kidney failure, unspecified Status: Acute (9) Nutrition, metabolism, and development symptoms Code(s): R63.8 - Other symptoms and signs concerning food and fluid intake Status: Acute <LambertPeggy Bridgette - 06/07/18 18:07> (1) Hypertension Code(s): I10 - Essential (primary) hypertension Status: Chronic Plan: Patient per chart review previously with diet-controlled hypertension, questionable compliance with following up with his previous PCP Had been increased on antihypertensives per his primary care physician Increase lisinopril to 40 mg once daily Start HCTZ 12.5 mg once daily Labetalol 10 mg IV q4h prn BP > 180/100 Hydralazine prn Monitor vitals q4h (2) Transaminitis Code(s): R74.0 - Nonspecific elevation of levels of transaminase and lactic acid dehydrogenase [LDH] Status: Acute Plan: Patient has mild transaminitis with known recent hepatitis A infection Continue supportive care Avoid hepatotoxic agents LFTs improving (3) Hepatitis A Code(s): B15.9 - Hepatitis A without hepatic coma Status: Acute Plan: Plan as above Continue to monitor LFTs, INR (4) Cough Code(s): R05 - Cough Status: Acute Plan: The patient is afebrile, no leukocytosis CXR is noted to be within normal limits Swab for influenza Consider otherwise due to viral URI vs bronchitis Guaifenesin prn (5) Diabetes mellitus Code(s): E11.9 - Type 2 diabetes mellitus without complications Status: Chronic Plan: The patient has poorly controlled insulin-dependent diabetes mellitus with last A1c of 15.2 on 05/21/2018 Will half home dose on insulin at this time, titrate up as necessary, initial random glucose is 90 Accuchecks ACHS Low-dose aspart ISS Hypoglycemia protocol (6) History of CVA (cerebrovascular accident) Code(s): Z86.73 - Personal history of transient ischemic attack (TIA), and cerebral infarction without residual deficits Status: Chronic Plan: Appreciate PT and OT Continue daily aspirin Hold pravastatin at this time Early mobilization with assistance as tolerated (7) Atrial arrhythmia Code(s): I49.8 - Other specified cardiac arrhythmias Status: Acute Plan: On prior admission to telemetry it indicated an atrial arrhythmia with atrial fibrillation cannot be ruled out, previously were awaiting Holter monitor however patient had left AMA Continues to be in rrr Continue cardiac telemetry monitoring (8) THAIS (acute kidney injury) Code(s): N17.9 - Acute kidney failure, unspecified Status: Acute Plan: Cr 1.53 on admission, baseline ~1.3 Consider pre-renal etiology from decrease renal perfusion pressure Encourage PO intake, no IVF at this time given hypervolemic on exam (9) Nutrition, metabolism, and development symptoms Code(s): R63.8 - Other symptoms and signs concerning food and fluid intake Status: Acute Plan: Fluids: per PO Electrolytes: Continue to monitor Nutrition: Diabetic diet GI ppx: not indicated DVT ppx: Lovenox <Antwan Ballardsh - 06/06/18 13:20> - Assessment and Plan Discharge Planning: Stable for discharge home today with close f/u with PCP <Antwan Ballardsh - 06/06/18 13:26> - Attending Attestation The exam, history, and the medical decision-making described in the above note were completed with the assistance of the resident physician. I reviewed and agree with the findings presented. I attest that I had a [id number] encounter with the patient on the same day, and personally performed and documented my assessment and findings in the medical record. he feels improved overall. he is still coughing but not febrile <Peggy Verdin - 06/07/18 18:07>
[2018-06-06] MEDS: Insulin NovoLOG Aspart Correctional Sugar Inj SQ SCH ×2 (08:21→13:04)
[2018-06-06] MEDS ORDERED: Lisinopril 20 MG Tablet PO ONE (09:00)
[2018-06-06] MEDS ORDERED: Enoxaparin Inj 30 MG/0.3 ML Syringe SQ SCH (09:00)
[2018-06-06] MEDS: Insulin Detemir Inj 1,000 UNIT/10 ML Vial SQ SCH (09:19)
[2018-06-06] MEDS ORDERED: hydroCHLOROthiazide 25 MG Tablet PO SCH (11:00)
--- NOTE | 2018-06-06 12:55 | P.DCO ---
- Physical Therapy Order: Evaluate and treat, Improve ambulation, Strength and gait training - Home Health Nursing Order: Nursing assessment with vital signs - Case Management Consult Case Management Consult-Home Health: Yes - Certification I have seen patient Dom Gallagher on 06/06/18. My clinical findings support the need for the requested home health care services because: Limited mobility due to disease progression I certify that my clinical findings support that this patient is homebound because: Unsafe to leave home unassisted
[2018-06-07] MEDS ORDERED: Lisinopril 20 MG Tablet PO SCH (09:00)
== END 2018-06-06 15:08 | disposition home health service (06) | DRG 305 ==
LOC: NEPC 11:14 → NEDA 13:40 → INTOOBSV 13:40 → N07 15:30
PROVIDERS: ADMIT Family Medicine; ATTEND Family Medicine